=== PATIENT | male | born 1940 | race Caucasian/White ===

== ENCOUNTER 2019-11-11 06:02 | Day surgery (SDC) | payer MEDICARE, SELFPAY ==
--- NOTE | 2019-11-06 09:11 | EKG12_ITS ---
Test Reason : PRE OP Blood Pressure : / mmHG Vent. Rate : 083 BPM Atrial Rate : 141 BPM P-R Int : 000 ms QRS Dur : 084 ms QT Int : 374 ms P-R-T Axes : 000 013 027 degrees QTc Int : 439 ms Normal Sinus Rhythm Normal EKG Confirmed by NIOK RIVERO ([id number]), editor magazine DESIREE BERTRAND ([id number]) on 11/07/2019 7:56:02 AM Referred By: Joesph Reyes Confirmed By:NKIO RIVERO
[2019-11-06 09:39] LABS: Hematocrit 39.5 % (40-54); Hemoglobin 12.8 g/dL (13.0-16.5); Mean Corp Hgb Conc 32.4 g/dL (32-36); Mean Corpuscular Hgb 29.4 pg (27.0-32.0); Mean Corpuscular Volume 90.8 fL (80-94); Mean Platelet Vol. 9.4 fl (6.2-12.0); Platelet Count 264 K/mm3 (150-450); RBC Distribution Width CV 13.2 % (11.6-14.6); RBC Distribution Width SD 44.1 fl (35.1-43.9); Red Blood Count 4.35 M/mm3 (4.6-6.2); White Blood Count 7.8 K/mm3 (4.4-11.0)
[2019-11-06 10:00] LABS: Anion Gap 9 (5-15); BUN 25 mg/dL (7-18); BUN/Creat Ratio 16.8 RATIO (10-20); Calcium,Total 9.8 mg/dL (8.5-10.1); Chloride 107 mmol/L (98-107); Creatinine, Serum 1.49 mg/dL (0.70-1.30); EST Glomerular Filtration Rate 48 mL/min (>60); Est Glom Filt Rate - Afr Amer 58 mL/min (>60); Glucose 282 mg/dL (74-106); Potassium 4.1 mmol/L (3.5-5.1); Sodium Level 141 mmol/L (136-145)
--- NOTE | 2019-11-11 | LES_PTH ---
PATIENT: MEERDITH TORRES LOC: [facility] [place][id number] AGE/SX: 79/M ROOM: RE11/11/[address]: Dr. Joesph Reyes MD : [id number] BED: DIS: 11/11/2019 SPEC #: [id number] RECD: 11/11/19 07:59 STATUS: BINH CHARITO #: [id number] RAMON: 11/11/19 00:[address]: Joesph Reyes DEPT: SURGICAL PATHOLOGY RECD BY: Jessica Prado ENTERED: 11/11/19 09:28 SP TYPE: Lesion OTHR DR: Dr. Myah Dela Cruz MD Tissues: A - Skin of external ear, NOS B - Skin of external ear, NOS C - Skin of external ear, NOS D - Skin of external ear, NOS Procedures: Frozen Section (charge) Surgery Specimen Level IV HEADER OPERATION: Excision ear basal cell carcinoma with flap reconstruction PRE-OP DIAGNOSIS: Right ear basal cell carcinoma, left cheek lesion TISSUE SUBMITTED: A - Right ear basal cell carcinoma, short stitch - anterior, long stitch - inferior at 6 o'clock, sent for FS at 0756, B - Additional inferior margin right ear, stitch - inferior, sent for FS at 0828, C - Additional superior margin right ear, stitch - inferior, D - Left cheek lesion FROZEN SECTION DIAGNOSIS A. Right ear lesion, excisional biopsy: Basosquamous carcinoma. The tumor is close to inferior margin. B. Additional inferior margin, right ear biopsy: Positive for in situ carcinoma. BINH:noemi 11/11/19 MICROSCOPIC DIAGNOSIS A. 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 Actinic keratosis with moderate atypia and solar elastosis. See comment. B. Additional inferior margin, right ear biopsy: Focal squamous cell carcinoma in situ. See comment. Actinic keratosis with moderate to severe atypia. Solar elastosis. C. Additional superior margin: Actinic keratosis with moderate to severe atypia. Solar elastosis. See comment. D. Left cheek lesion, excisional biopsy: Actinic keratosis, hypertrophic type with Mild to moderate atypia and verrucous features. Negative for malignancy. Solar elastosis. BINH:noemi 11/12/19 COMMENT A. The tumor is present close to inferior margin of the specimen. B. Squamous cell carcinoma in situ is noted only on the frozen sections slide. Case has been reviewed in consultation with Dr. Hobson who concurs with the above diagnosis. IDC:AM MICROSCOPIC DESCRIPTION Slides are reviewed. GROSS DESCRIPTION A - Received fresh for frozen section diagnosis labeled with the patient's name is a specimen designated right ear basal cell carcinoma. The specimen consists of a wedge-shaped piece of lewis-white skin measuring 2.9 x 2.2 x 1 cm. The specimen is oriented by sutures as follows: short stitch - anterior, long stitch - inferior at 6 o'clock. The specimen is inked as follows: stitch identified as inferior margin - black, superior margin - blue, inferior margin - green. The specimen is serially sectioned and submitted entirely for frozen section diagnosis in two cassettes. B - Received fresh for frozen section diagnosis labeled with the patient's name is a specimen designated additional inferior margin right ear. The specimen consists of a piece of lewis-white skin including cartilage measuring 1 x 0.7 x 0.2 cm. The entire specimen is submitted for frozen section diagnosis in one cassette. C - Received in fixative is one container labeled with the patient's name and designated additional superior margin. The specimen consists of a wedge-shaped piece of lewis-white skin measuring 0.7 x 0.7 x 0.7 cm. The specimen is oriented by a suture marking inferior margin. This margin is inked blue. The rest of the margin is inked black. The specimen dissected and submitted entirely in one cassette. D - Received in fixative is one container labeled with the patient's name and designated left cheek lesion. The specimen consists of a piece of lewis-white skin measuring 2 x 1.1 cm and up to 0.3 cm in thickness. There is a raised brown lesion on the surface measuring 1.5 x 1.1 cm. This specimen is inked, serially sectioned and submitted entirely in one cassette. / SJ:noemi 11/11/19 TC:0 CPT: 82069 x4, 99793 x2
[2019-11-11 06:18] VITALS: BP 156/62; PULSE 80; RESP 16; TEMP 36.5; O2SAT 99; BMI 38.0
[2019-11-11] MEDS: Lactated Ringers 1,000 ML 100 ML IV (06:33)
[2019-11-11 06:40] LABS: Bedside Glucose 197 mg/dL (70-110)
--- NOTE | 2019-11-11 07:32 | DCINST_ITS ---
You will use the following diet at home:: Regular Your food should be the consistency of: Regular Discharge Activity: No Restrictions Additional Activity Instructions:: Remove dressings and discard 11/12/19. Apply antibiotic ointment 2x/day starting 11/12/19. May shower and get the incisions wet on 11/13/19 Allergies/Adverse Reactions: Allergies lisinopril Adverse Reaction (Verified 11/11/19 06:17) PT UNSURE OF REACTION cough Medications to take at Discharge Amlodipine [Norvasc] 5 mg PO DAILY 01/13/16 Ascorbic Acid [Vitamin C] 500 mg PO QHS 01/13/16 Aspirin [Aspirin, Baby] 81 mg PO DAILY@0800 01/13/16 Cyanocobalamin (Vitamin B-12) [Vitamin B-12] 1,000 mcg PO DAILY 01/13/16 Flaxseed Oil [[place]-3 Flaxseed Oil] 1,000 mg PO BID 01/13/16 Furosemide [Lasix] 40 mg PO DAILY 01/13/16 Glipizide [Glipizide ER] 2.5 mg PO DAILY 01/13/16 Losartan Potassium [Cozaar] 100 mg PO QHS 01/13/16 Lovastatin [Mevacor] 40 mg PO QHS 01/13/16 Multivitamins,Therapeutic [Multivitamin] 1 tablet PO DAILY 01/13/16 Tamsulosin HCl [Flomax] 0.4 mg PO QHS 01/13/16 Vitamin E 400 unit PO DAILY 01/13/16 metFORMIN HCl [Glucophage] 1,000 mg PO BIDCM 01/13/16 Cranberry Fruit Extract [Cranberry] 300 mg PO BID 09/05/16 Primary Care Physician: Myah Dela Cruz MD [Primary Care Provider] - Test Results: Test results from this visit will be discussed in further detail at your follow- up appointment, if applicable.
[2019-11-11] MEDS: BACITRACIN/POLYMYXIN B 15 GM Tube 1 APPLIC (08:52)
[2019-11-11 09:00] VITALS: BP 121/55; BP 156/62; PULSE 85; RESP 16; TEMP 36.3; O2SAT 93
[2019-11-11 09:05] VITALS: BP 117/59; BP 156/62; PULSE 83; RESP 17; O2SAT 92
--- NOTE | 2019-11-11 09:07 | PCM.OPRPT ---
Report of Operation Date of Procedure: 11/11/19 Pre-Operative Diagnosis: right ear basal cell carcinoma. left cheek lesion Post-Operative Diagnosis: right ear basosquamous cell carcinoma. left cheek lesion Surgery/Procedure Performed:: excision right ear basosquamous carcinoma. local flap reconstruction (star flap) size of defect 3x2 cm. excision left cheek lesion with intermediate repair (2x1 cm) Type of Anesthesia:: Local MAC Anesthesiologist: Mateus Cannon Specimen's removed: as above Estimated Blood Loss (mL): minimal Description of Procedure: The patient was taken to the operating room on 11/11/2019. He was placed in a supine position on the operating table. He was given sufficient local MAC anesthesia. The right ear was prepped and draped sterilely. Local was injected into the skin around the lesion. The right ear lesion was excised with 5 mm margins both inferiorly and superiorly. This was cut through and through with an 11 blade. A marking stitch was used to tailsha appropriately. Hemostasis was achieved with bipolar cautery. Next I took a triangle of tissue from the inferior margin at its widest point it was 8 mm (at the original excision site) and narrowed to a tip inferiorly. I took a similar size additional margin superiorly. Again bipolar cautery was used. I then irrigated the wound with saline. Frozen section revealed basosquamous carcinoma. The inferior margin was close on the original specimen. Adjacent, additional inferior margin revealed carcinoma in situ. The cartilage was closed with interrupted 4-0 Vicryl. The skin was closed both laterally and medially with interrupted 6-0 nylon. Antibiotic ointment and a [place] dressing were then applied. The left cheek lesion was prepped and draped steriley. Next, local was injected around the left cheek lesion. The lesion was excised in an ellipse using a 15 blade. Hemostasis was achieved with bipolar cautery. The undermining was completed using a iris scissors. The deep layer was then closed with 4-0 Vicryl. Skin was closed with a running 6-0 nylon. The lesion was sent for permanent section. Antibiotic ointment and an OpSite were then applied. Patient was then removed from the operating brought to the recovery room in stable condition. Blood loss minimal, replacement none. Sponge, needle, instrument count were all correct at the end of the procedure.
[2019-11-11 09:10] VITALS: BP 114/57; BP 156/62; PULSE 80; RESP 16; O2SAT 93
[2019-11-11 09:15] VITALS: BP 116/45; BP 156/62; PULSE 81; RESP 16; TEMP 36.7; O2SAT 96
[2019-11-11 09:39] VITALS: BP 156/62
== END 2019-11-11 09:52 | disposition home or self-care (01) ==
LOC: SDC 06:05 → AC 06:05
PROVIDERS: PCP Family Medicine; Referring Provider Otolaryngology; Visit Provider Otolaryngology
PROC: (CPT 11442; principal; 2019-11-11 07:20)
DX: C44.212 Basal cell carcinoma of skin of right ear and external auricular canal (principal); L57.0 Actinic keratosis; L57.8 Other skin changes due to chronic exposure to nonionizing radiation; W89.9XXA Exposure to unspecified man-made visible and ultraviolet light, initial encounter; Y93.9 Activity, unspecified; Y92.9 Unspecified place or not applicable; Y99.9 Unspecified external cause status; I10 Essential (primary) hypertension; Z79.84 Long term (current) use of oral hypoglycemic drugs; Z79.82 Long term (current) use of aspirin; Z79.899 Other long term (current) drug therapy; Z87.891 Personal history of nicotine dependence
CPT/HCPCS: 11442; 11646; 12054; 36415; 80048; 82962; 85027; 88305; 88331; 93005; J7120; J2405